=== PATIENT | male | born 1960 | race Caucasian/White ===

== ENCOUNTER → 2023-09-02 10:13 | Outpatient (REF) | payer OTHER, SELFPAY | LOC: RAD 10:13 | PROVIDERS: ATTENDING PHYSICIAN Nurse Practitioner Gerontology; FAMILY PHYSICIAN Family Medicine | DX: Q23.1 Congenital insufficiency of aortic valve (principal); I35.9 Nonrheumatic aortic valve disorder, unspecified | CPT/HCPCS: 71275; 93306; Q9967 ==

== ENCOUNTER → 2024-01-20 13:55 | Outpatient (REF) | payer OTHER, SELFPAY | LOC: RAD 13:55 | PROVIDERS: ATTENDING PHYSICIAN Family Medicine | DX: H53.9 Unspecified visual disturbance (principal) | CPT/HCPCS: 70496; 70498; Q9967 ==

== ENCOUNTER 2024-07-27 15:40 | Emergency (ER) | payer BC, SELFPAY ==
[2024-07-27 15:46] VITALS: BP 139/86
[2024-07-27 16:07] LABS: % Basophils 0.4 % (0-2); % Eosinophils 2.1 % (0-6); % Immature Granulocytes 0.3 % (0-0.5); % Lymphocytes 27.9 % (20.5-51.1); % Monocytes 8.8 % (1.7-9.3); % Neutrophils 60.5 % (42.2-75.2); Absolute Eosinophils 0.2 10^3/uL (0-0.7); Absolute Lymphocytes 2.1 10^3/uL (1.2-3.4); Absolute Monocytes 0.7 10^3/uL (0.1-0.6); Absolute Neutrophils 4.5 10^3/uL (1.4-6.5); Hematocrit 43.5 % (39.0-52.0); Mean Corp Hgb Conc. 34.5 g/dL (33.0-37.0); Mean Corpuscular Hgb 27.3 pg (27.0-31.0); Mean Corpuscular Volume 79.2 fL (80.0-94.0); Mean Platelet Volume 10.5 fL (7.4-10.4); Nucleated Red Blood Cells % 0 % (-); Platelet Count 148 10^3/uL (130-400); Red Blood Cell Count 5.49 10^6/uL (4.70-6.10); Red Cell Dist. Width 13.2 % (11.5-14.5); White Blood Cell Count 7.5 10^3/uL (4.8-10.8)
[2024-07-27 16:22] LABS: ALT (SGPT) 64 U/L (0-50); AST (SGOT) 41 U/L (17-59); Albumin 4.8 g/dl (3.5-5.0); Alkaline Phosphatase 51 U/L (38-126); Blood Urea Nitrogen 22 mg/dl (9-20); Calcium 9.8 mg/dl (8.4-10.2); Carbon Dioxide 26 mmol/L (22-30); Chloride 97 mmol/L (98-107); Glucose 137 mg/dl (70-99); Potassium 3.4 mmol/L (3.5-5.1); Sodium 134 mmol/L (135-145); Total Bilirubin 0.9 mg/dl (0.2-1.3); Total Protein 7.2 g/dl (6.3-8.2); eGFR > 60.00
[2024-07-27 16:34] LABS: Troponin I < 0.012 ng/ml
[2024-07-27 19:04] VITALS: BP 129/70
[2024-07-27 19:06] VITALS: BMI 37.7
--- NOTE | 2024-07-27 19:34 | ED.GENMED ---
History of Present Illness
General
Chief Complaint: Chest Pain
Time Seen by Provider: 07/27/24 19:15
History of Present Illness
History of Present Illness:
64-year-old male presents to the emergency department for evaluation of left-sided chest discomfort. He has had this pain ongoing for the past several weeks but it seemed worse last night. Worse with certain movements of the torso. States he was
able to walk 3 miles yesterday without any provocation of pain. Awoke in pain last night. Pleuritic in nature, nonradiating. Focal to the left anterior chest wall at the lower rib margin. Able to eat and drink without any difficulties or
increased pain
Past History
Past History
ED Past Medical History: HTN and Other (bicuspid aortic valve/aneurysm)
ED Past Surgical History: Other (Orthopedic procedure sphincterotomy)
Social History
Tobacco: Non-smoker
Alcohol: Occasional
Drug: None
Personal:
Employment: Employed
Family History
Family History: Diabetes
Review of Systems
Review of Systems
Allergies reviewed?: Yes
All Other Systems: ROS reviewed and negative except as documented in HPI and ROS
Phy Exam
Physical Exam
Physical Exam:
GEN: Well appearing, NAD, WDWN
HEENT: Oral mucosa moist, no scleral icterus
Cardiac: Regular rate and rhythm, no murmurs
Lung: No respiratory distress, no tachypnea
Chest: Focal point tenderness to the anterior chest wall inferior rib margin and the nipple line with no palpable abnormality
MSK: No gross deformity or injuries
Skin: Good color, no pallor or jaundice, no rashes
Neuro: AO x3, moves all extremities freely
Psych: Calm, cooperative
Scores
Heart Score for Chest Pain Patients
STEMI patient?: Not applicable
Course
Orders/Labs/Results
Orders:
Orders
07/27/24 15:43
Electrocardiogram (*1) Urgent
Reason for Study: Chest Pain
EKG- Treatment ONCE
07/27/24 15:51
Complete Blood Count/With Diff Urgent
Comprehensive Metabolic Panel Urgent
Troponin I Urgent
07/27/24 19:32
CR Chest - 2 Views Urgent
Comment:
Reason For Exam: L chest pain
Abnormal Lab Results
07/27/24
15:51
MCV 79.2 L fL
(80.0-94.0)
MPV 10.5 H fL
(7.4-10.4)
Absolute Monos (auto) 0.7 H 10^3/uL
(0.1-0.6)
Sodium 134 L mmol/L
(135-145)
Potassium 3.4 L mmol/L
(3.5-5.1)
Chloride 97 L mmol/L
(98-107)
BUN 22 H mg/dl
(9-20)
Glucose 137 H mg/dl
(70-99)
ALT 64 H U/L
(0-50)
07/27/24 15:51
07/27/24 15:51
Vital Signs
Initial and Last Documented VS:
Initial Vital Signs
Temp Pulse Resp BP Pulse Ox
97.9 F 68 16 139/86 97
07/27/24 15:46 07/27/24 15:46 07/27/24 15:46 07/27/24 15:46 07/27/24 15:46
Last Documented Vital Signs
Temp Pulse Resp BP Pulse Ox
97.9 F 61 18 138/79 97
07/27/24 15:46 07/27/24 20:00 07/27/24 20:00 07/27/24 20:00 07/27/24 20:30
MDM/Problems Addressed
MDM/Problems Addressed:
Patient's workup is reassuring, and the pain is clearly reproducible to palpation of the inferior ribs suggesting a musculoskeletal etiology. Doubt gastric/GI pain given that the patient is able to eat and drink without reproduction of pain. Will
treat with short course of NSAIDs, recommend primary care follow-up
*Critical Care Note
Total Time (30-74mins, 75-104mins- exclusive of procedures): Not Applicable
ED Attending Note
-
Portions of this chart may have been created with voice recognition software.� Occasional wrong word or��sound alike� substitutions may have occurred due to the inherent limitations of voice recognition software.
Discharge Plan
Departure
Patient Disposition: Home (Routine Discharge)
Date of Disposition: 07/27/24
Time of Disposition: 20:25
Patient with high blood pressure during this ER visit?: No
Discharge Problem:
Chest pain, musculoskeletal
Instructions: Costochondritis (DC)
Prescriptions:
New
celecoxib [Celebrex] 200 mg capsule
200 mg PO BID Qty: 14 0RF
No Action
cetirizine 10 MG tablet
10 mg PO DAILY
hydrochlorothiazide 12.5 MG capsule
12.5 mg PO DAILY
irbesartan [Avapro] 75 MG tablet
0.5 tab PO DAILY
Lactobacillus acidophilus [Probiotic] 1 EACH capsule
1 ea PO DAILY
fluticasone propionate 1 SPRAY spray,suspension
1 spray intranasal DAILY
cholecalciferol (vitamin D3) [Vitamin D3] 2,000 UNIT capsule
2,000 unit PO DAILY
psyllium husk (aspartame) [Metamucil Fiber Singles] 1 PACKET powder in packet
1 packet PO DAILY
red yeast rice 600 MG tablet
600 mg PO DAILY
[id number]-fza-[id number]-[id number]-rvzcxpj-xjwtya [Centrum Silver Men] 1 EACH tablet
1 ea PO DAILY
chromium picolinate 1,000 MCG tablet
1,000 mcg PO DAILY
ohcwngrn-aubym-ydhln-CF borate [Move Free Joint Health] 1 EACH tablet
1 ea PO DAILY
Referrals:
Anh Bernstein, [Family Provider] -
Activity Restrictions/Additional Instructions:
Follow up with your primary doctor if symptoms worsen despite meds
Interventions
Interventions:
*Risk Screen - Suicide Last Done: 07/27/24 15:48
*General Assessment Last Done: 07/27/24 19:07
*Neglect/Abuse Screening Last Done: 07/27/24 15:48
*ED- Fall Risk Assessment Last Done: 07/27/24 19:07
*ED COVID-19 Vaccine History Last Done: 07/27/24 19:07
*Nursing Disposition Last Done: 07/27/24 20:51
ED- Cardiac Assessment Last Done: 07/27/24 19:07
Discharge Date and Time
Discharge Date/Time: 07/27/24 20:54
Print Language: YI
[2024-07-27 20:00] VITALS: BP 138/79
== END 2024-07-27 20:54 | disposition home or self-care (01) ==
LOC: EMR 15:40
PROVIDERS: Emergency Medicine; EMERGENCY PHYSICIAN Emergency Medicine; FAMILY PHYSICIAN Family Medicine
DX: R07.89 Other chest pain (principal); I10 Essential (primary) hypertension; Q23.81 Bicuspid aortic valve; Z83.3 Family history of diabetes mellitus
CPT/HCPCS: 99283; 71046; 80053; 84484; 85025; 93005

== ENCOUNTER → 2024-09-05 10:56 | Outpatient (REF) | payer BC, SELFPAY | LOC: RAD 10:56 | PROVIDERS: ATTENDING PHYSICIAN Nurse Practitioner Acute Care; FAMILY PHYSICIAN Family Medicine | DX: I71.21 Aneurysm of the ascending aorta, without rupture (principal); I35.9 Nonrheumatic aortic valve disorder, unspecified | CPT/HCPCS: 71275; Q9967 ==

== ENCOUNTER → 2024-09-14 06:43 | Outpatient (REF) | payer BC, SELFPAY | LOC: PAVMRI 06:43 | PROVIDERS: ATTENDING PHYSICIAN Psychiatry & Neurology Neurology; FAMILY PHYSICIAN Family Medicine; REFERRING PHYSICIAN Nurse Practitioner Acute Care | DX: I63.9 Cerebral infarction, unspecified (principal); I71.21 Aneurysm of the ascending aorta, without rupture | CPT/HCPCS: 70551; 93306 ==